=== PATIENT | female | born 1995 | race Caucasian/White ===

== ENCOUNTER 2016-09-02 22:31 | Emergency (ER) | payer MEDICAID ==
[2016-09-02 22:36] VITALS: TEMP 98.2
[2016-09-02] MEDS ORDERED: ONDANSETRON 4 MG/2 ML VIAL IVP STA (22:41)
[2016-09-02] MEDS ORDERED: DICYCLOMINE 10 MG/ML 2 ML AMP IM STA (22:41)
[2016-09-02] MEDS ORDERED: SODIUM CHLORIDE 0.9% 1,000 ML IV STA (22:41)
--- NOTE | 2016-09-02 22:46 | ED ---
Nausea/Vomiting/Diarrhea HPI - General Chief complaint: Nausea/Vomiting/Diarrhea Stated complaint: nausea Time Seen by Provider: 09/02/16 22:37 Source: patient, RN notes reviewed Mode of arrival: ambulatory Limitations: no limitations - History of Present Illness Initial comments: 20-year-old female presents to the emergency department with a chief complaint of nausea vomiting diarrhea. This started at 4:00 today. Patient states she threw up multiple times. Patient denies any fever chills. Patient states that she was concerned due to continued nausea vomiting diarrhea. patient denies any significant health history. Patient states she is feeling anxious about being in the hospital.Patient denies any recent fever, chills, shortness of breath, chest pain, back pain, abdominal pain, numbness or tingling, dysuria or hematuria, constipation, headaches or visual changes, or any other current symptoms. - Related Data Home Medications Medication Instructions Recorded Confirmed Escitalopram [Lexapro] 10 mg PO DAILY 09/02/16 09/02/16 Previous Rx's Medication Instructions Recorded Ondansetron Odt [Zofran ODT] 4 mg PO Q8HR PRN #20 tab 09/03/16 Allergies Allergy/AdvReac Type Severity Reaction Status Date / Time Penicillins Allergy Rash/Hives Verified 09/02/16 22:36 Review of Systems ROS Statement: Those systems with pertinent positive or pertinent negative responses have been documented in the HPI. ROS Other: All systems not noted in ROS Statement are negative. Past Medical History Past Medical History: No Reported History History of Any Multi-Drug Resistant Organisms: None Reported Past Surgical History: No Surgical Hx Reported Past Psychological History: Anxiety, Depression Smoking Status: Current every day smoker Past Alcohol Use History: Occasional Past Drug Use History: None Reported General Exam - General Exam Comments Initial Comments: General: The patient is awake and alert, in mild distress due to being anxious , and does not appear acutely ill. Eye: Pupils are equal, round and reactive to light, extra-ocular movements are intact; there is normal conjunctiva bilaterally. No signs of icterus. Ears, nose, mouth and throat: There are moist mucous membranes and no oral lesions. Neck: The neck is supple, there is no tenderness. Cardiovascular: There is a tachycardia with regular rhythm. No murmur, rub or gallop is appreciated. Respiratory: Lungs are clear to auscultation, respirations are non-labored, breath sounds are equal. No wheezes, stridor, rales, or rhonchi. Gastrointestinal: Soft, non-distended, non-tender abdomen without masses or organomegaly noted. There is no rebound or guarding present. No CVA tenderness. Bowel sounds are unremarkable. Back: There is no tenderness to palpation in the midline. There is no obvious deformity. No rashes noted. Musculoskeletal: Normal ROM, no tenderness, There is no pedal edema. There is no calf tenderness or swelling. Sensation intact. Pulses equal bilaterally 2+. Neurological: CN II-XII intact, There are no obvious motor or sensory deficits. Coordination appears grossly intact. Speech is normal. Skin: Skin is warm and dry and no rashes or lesions are noted. Psychiatric: Cooperative, appropriate mood & affect, normal judgment. Limitations: no limitations Course Vital Signs 09/02/16 22:33 Temperature 98.2 F Pulse Rate 122 H Respiratory 20 Rate Blood Pressure 114/73 O2 Sat by Pulse 97 Oximetry Medical Decision Making - Medical Decision Making 20-year-old female presents emergency Department chief complaint of nausea vomiting diarrhea. Patient's abdomen is soft and nontender at this time. At this time patient's laboratory is reviewed. This is a mildly elevated white count which is thought to be reactive due to the increased nausea vomiting. The patient did have nausea vomiting diarrhea here Zofran did help we did give her another dose of Reglan. At this time we did give the patient prescription for Zofran for home. We discussed return parameters and follow-up. We discussed this time it does appear to be most likely due to a stomach virus however we discussed other etiologies what to look for. Patient's family stated they understood all questions have been answered. They will be discharged home. - Lab Data Result diagrams: 09/02/16 23:17 09/02/16 23:17 Lab Results 09/02/16 09/02/16 09/02/16 Range/Units 23:17 23: 23:30 WBC 15.7 H (4.0-11.0) k/uL RBC 5.25 (3.80-5.40) m/uL Hgb 15.1 (11.4-16.0) gm/dL Hct 45.5 (34.0-46.0) % MCV 86.7 (80.0-100.0) fL MCH 28.7 (25.0-35.0) pg MCHC 33.2 (31.0-37.0) g/dL RDW 12.8 (11.5-15.5) % Plt Count 213 (150-450) k/uL Neutrophils % 89 % Lymphocytes % 4 % Monocytes % 3 % Eosinophils % 3 % Basophils % 1 % Neutrophils # 13.9 H (1.3-7.7) k/uL Lymphocytes # 0.6 L (1.0-4.8) k/uL Monocytes # 0.5 (0-1.0) k/uL Eosinophils # 0.5 (0-0.7) k/uL Basophils # 0.1 (0-0.2) k/uL Sodium 143 (137-145) mmol/L Potassium 4.1 (3.5-5.1) mmol/L Chloride 108 H (98-107) mmol/L Carbon Dioxide 20 L (22-30) mmol/L Anion Gap 15 mmol/L BUN 16 (7-17) mg/dL Creatinine 0.60 (0.52-1.04) mg/dL Est GFR (MDRD) Af Amer >60 (>60 ml/min/1.73 sqM) Est GFR (MDRD) Non-Af >60 (>60 ml/min/1.73 sqM) Glucose 127 H (74-99) mg/dL Calcium 9.8 (8.4-10.2) mg/dL Total Bilirubin 0.4 (0.2-1.3) mg/dL AST 25 (14-36) U/L ALT 38 (9-52) U/L Alkaline Phosphatase 81 (38-126) U/L Total Protein 8.0 (6.3-8.2) g/dL Albumin 4.9 (3.5-5.0) g/dL Urine Color Urine Appearance (Clear) Urine pH (5.0-8.0) Ur Specific [place] (1.001-1.035) Urine Protein (Negative) Urine Glucose (UA) (Negative) Urine Blood (Negative) Urine Nitrate (Negative) Urine Bilirubin (Negative) Urine Urobilinogen (<2.0) mg/dL Ur Leukocyte Esterase (Negative) Urine RBC (0-5) /hpf Urine WBC (0-5) /hpf Ur Squamous Epith Cells (0-4) /hpf Urine Bacteria (None) /hpf Urine Mucus (None) /hpf Urine HCG, Qual Not Detected (Not Detectd) 09/03/16 Range/Units 00:47 WBC (4.0-11.0) k/uL RBC (3.80-5.40) m/uL Hgb (11.4-16.0) gm/dL Hct (34.0-46.0) % MCV (80.0-100.0) fL MCH (25.0-35.0) pg MCHC (31.0-37.0) g/dL RDW (11.5-15.5) % Plt Count (150-450) k/uL Neutrophils % % Lymphocytes % % Monocytes % % Eosinophils % % Basophils % % Neutrophils # (1.3-7.7) k/uL Lymphocytes # (1.0-4.8) k/uL Monocytes # (0-1.0) k/uL Eosinophils # (0-0.7) k/uL Basophils # (0-0.2) k/uL Sodium (137-145) mmol/L Potassium (3.5-5.1) mmol/L Chloride (98-107) mmol/L Carbon Dioxide (22-30) mmol/L Anion Gap mmol/L BUN (7-17) mg/dL Creatinine (0.52-1.04) mg/dL Est GFR (MDRD) Af Amer (>60 ml/min/1.73 sqM) Est GFR (MDRD) Non-Af (>60 ml/min/1.73 sqM) Glucose (74-99) mg/dL Calcium (8.4-10.2) mg/dL Total Bilirubin (0.2-1.3) mg/dL AST (14-36) U/L ALT (9-52) U/L Alkaline Phosphatase (38-126) U/L Total Protein (6.3-8.2) g/dL Albumin (3.5-5.0) g/dL Urine Color Yellow Urine Appearance Cloudy H (Clear) Urine pH 5.5 (5.0-8.0) Ur Specific [place] 1.020 (1.001-1.035) Urine Protein Trace H (Negative) Urine Glucose (UA) Negative (Negative) Urine Blood Negative (Negative) Urine Nitrate Negative (Negative) Urine Bilirubin Negative (Negative) Urine Urobilinogen <2.0 (<2.0) mg/dL Ur Leukocyte Esterase Negative (Negative) Urine RBC <1 (0-5) /hpf Urine WBC 1 (0-5) /hpf Ur Squamous Epith Cells 14 H (0-4) /hpf Urine Bacteria Rare H (None) /hpf Urine Mucus Rare H (None) /hpf Urine HCG, Qual (Not Detectd) Disposition Clinical Impression: Nausea & vomiting, Diarrhea Disposition: HOME SELF-CARE Condition: Stable Instructions: Acute Nausea and Vomiting (ED) Additional Instructions: Please use medication as discussed. Please follow up with family doctor if symptoms have not improved over the next two days. Please return to the emergency room if your symptoms increase or worsen or for any other concerns. Prescriptions: Ondansetron Odt [Zofran ODT] 4 mg PO Q8HR PRN #20 tab PRN Reason: Nausea Referrals: Jennifer Boggs III, MD [Primary Care Provider] - 1-2 days Time of Disposition: 01:12
[2016-09-02 23:31] LABS: Basophils # (A) 0.1 k/uL (0-0.2); Basophils % (A) 1 %; CHCM 34.8; Eosinophils # (A) 0.5 k/uL (0-0.7); Eosinophils % (A) 3 %; HCT 45.5 % (34.0-46.0); HDW 2.57; HGB 15.1 gm/dL (11.4-16.0); Luc # (Auto) 0.06; Luc % (Auto) 0; Lymphocytes # (A) 0.6 k/uL (1.0-4.8); Lymphocytes % (A) 4 %; MCH 28.7 pg (25.0-35.0); MCHC 33.2 g/dL (31.0-37.0); MCV 86.7 fL (80.0-100.0); Mean Platelet Volume 7.9; Monocytes # (A) 0.5 k/uL (0-1.0); Monocytes % (A) 3 %; Neutrophils # (A) 13.9 k/uL (1.3-7.7); Neutrophils % (A) 89 %; RBC 5.25 m/uL (3.80-5.40); RDW 12.8 % (11.5-15.5); WBC 15.7 k/uL (4.0-11.0); WBC (Perox) 16.37
[2016-09-02 23:40] LABS: ALT 38 U/L (9-52); AST 25 U/L (14-36); Alkaline Phosphatase 81 U/L (38-126); Anion Gap 15 mmol/L; Blood Urea Nitrogen 16 mg/dL (7-17); Calcium 9.8 mg/dL (8.4-10.2); Carbon Dioxide 20 mmol/L (22-30); Chloride 108 mmol/L (98-107); Glucose 127 mg/dL (74-99); Non-African American GFR(MDRD) >60 (>60 ml/min/1.73 sqM); Potassium 4.1 mmol/L (3.5-5.1); Sodium 143 mmol/L (137-145); Total Bilirubin 0.4 mg/dL (0.2-1.3)
--- NOTE | 2016-09-03 00:47 | XR ---
EXAMINATION TYPE: XR abdomen 2V DATE OF EXAM: 09/03/2016 12:22 AM COMPARISON: NONE HISTORY: Abdominal pain TECHNIQUE: 3 views FINDINGS: Bowel gas pattern is normal. There is no sign of intestinal obstruction or pneumoperitoneum . Fecal pattern is normal. There is no sign of a mass. Lung bases are clear. There are no pathologic calcifications over the kidneys. Bony structures appear intact. IMPRESSION: Nonacute abdomen.
[2016-09-03] MEDS ORDERED: METOCLOPRAMIDE 5 MG/ML 2 ML VIAL IVP STA (01:03)
[2016-09-03] MEDS ORDERED: ONDANSETRON 4 MG ODT STARTER PACK 2 TAB BTL PO STA (01:04)
[2016-09-03 01:11] LABS: Appearance,Urine Cloudy (Clear); Bacteria,Urine Rare /hpf; Bilirubin,Urine Negative (Negative); Glucose,Urine (UA) Negative (Negative); Ketones,Urine 2+ (Negative); Leukocyte Esterase,Urine Negative (Negative); Mucus,Urine Rare /hpf; Nitrite,Urine Negative (Negative); PH, Urine 5.5 (5.0-8.0); Particle Count 6148; Protein,Urine Trace (Negative); RBC,Urine <1 /hpf (0-5); Squamous Epithelial Cell,Urine 14 /hpf (0-4); UA Billing (MACRO vs. MICRO) MICRO; Urobilinogen,Urine <2.0 mg/dL (<2.0); WBC,Urine 1 /hpf (0-5)
[2016-09-03 01:21] VITALS: BP 119/76; PULSE 96; RESP 16
== END 2016-09-03 01:21 | disposition home or self-care (01) ==
LOC: EC 22:31
DX: R19.7 Diarrhea, unspecified (principal); R11.2 Nausea with vomiting, unspecified; F17.200 Nicotine dependence, unspecified, uncomplicated; F41.9 Anxiety disorder, unspecified; F32.9 Major depressive disorder, single episode, unspecified; Z88.0 Allergy status to penicillin; Z79.899 Other long term (current) drug therapy
CPT/HCPCS: 99284; 96374; 96375; 96372; 96361; 36415; 80053; 85025; 81001; 81025; 74020; J0500; J2765; J2405; S0119

== ENCOUNTER 2020-05-16 17:22 | Emergency (ER) | payer SELFPAY ==
[2020-05-16 17:27] VITALS: BP 105/67; PULSE 85; RESP 16; TEMP 98.8
--- NOTE | 2020-05-16 17:29 | ED ---
Female Urogenital HPI - General Chief complaint: Abdominal Pain Stated complaint: poss bladder infection Time Seen by Provider: 05/16/20 17:28 Source: patient, RN notes reviewed, old records reviewed Mode of arrival: ambulatory Limitations: no limitations - History of Present Illness Initial comments: Is a 24-year-old female DF for evaluation of dysuria. History of UTI feels a prior UTI. No travel history or sick contacts no fevers. No abdominal pain. Denies chance of or STD MD Complaint: dysuria -: days(s) Location: suprapubic Radiation: non-radiating Severity: mild Severity scale (1-10): 3 Quality: burning Consistency: constant Improves with: none Worsens with: urination Last Menstrual Period: 04/29/20 Patient : No Associated Symptoms: denies other symptoms - Related Data Home Medications Medication Instructions Recorded Confirmed Escitalopram [Lexapro] 10 mg PO DAILY 09/02/16 09/02/16 Previous Rx's Medication Instructions Recorded Ondansetron Odt [Zofran ODT] 4 mg PO Q8HR PRN #20 tab 09/03/16 Nitrofurantoin Monohyd/M-Cryst 100 mg PO Q12HR #14 cap 05/16/20 [Macrobid] Allergies Allergy/AdvReac Type Severity Reaction Status Date / Time Penicillins Allergy Rash/Hives Verified 05/16/20 17:25 Review of Systems ROS Statement: Those systems with pertinent positive or pertinent negative responses have been documented in the HPI. ROS Other: All systems not noted in ROS Statement are negative. Past Medical History Past Medical History: No Reported History Additional Past Medical History / Comment(s): anemia, History of Any Multi-Drug Resistant Organisms: None Reported Past Surgical History: Ear Surgery Past Psychological History: Anxiety, Depression Smoking Status: Current every day smoker Past Alcohol Use History: Occasional Past Drug Use History: Marijuana General Exam Limitations: no limitations General appearance: alert, in no apparent distress Head exam: Present: atraumatic, normocephalic, normal inspection Eye exam: Present: normal appearance, PERRL, EOMI. Absent: scleral icterus, conjunctival injection, periorbital swelling ENT exam: Present: normal exam, mucous membranes moist Neck exam: Present: normal inspection. Absent: tenderness, meningismus, lymphadenopathy Respiratory exam: Present: normal lung sounds bilaterally. Absent: respiratory distress, wheezes, rales, rhonchi, stridor Cardiovascular Exam: Present: regular rate, normal rhythm, normal heart sounds. Absent: systolic murmur, diastolic murmur, rubs, gallop, clicks GI/Abdominal exam: Present: soft, normal bowel sounds. Absent: distended, tenderness, guarding, rebound, rigid Extremities exam: Present: normal inspection, full ROM, normal capillary refill. Absent: tenderness, pedal edema, joint swelling, calf tenderness Back exam: Present: normal inspection Neurological exam: Present: alert, oriented X3, CN II-XII intact Psychiatric exam: Present: normal affect, normal mood Skin exam: Present: warm, dry, intact, normal color. Absent: rash Course Vital Signs 05/16/20 17:23 Temperature 98.8 F Pulse Rate 85 Respiratory 16 Rate Blood Pressure 105/67 O2 Sat by Pulse 97 Oximetry - Reevaluation(s) Reevaluation #1: 05/16/20 17:30 medical record is reviewed Reevaluation #2: 05/16/20 18:44 Spoke with patient regarding findings questions answered pat Medical Decision Making - Medical Decision Making 24 female DF for evaluation patient is UTI, patient replacement antibiotics and discharged home urine is cultured - Lab Data Lab Results 05/16/20 05/16/20 Range/Units 17:50 17:50 Urine Color Yellow Urine Appearance Turbid H (Clear) Urine pH 6.5 (5.0-8.0) Ur Specific [place] 1.020 (1.001-1.035) Urine Protein 2+ H (Negative) Urine Glucose (UA) Negative (Negative) Urine Ketones Negative (Negative) Urine Blood Large H (Negative) Urine Nitrite Negative (Negative) Urine Bilirubin Negative (Negative) Urine Urobilinogen <2.0 (<2.0) mg/dL Ur Leukocyte Esterase Large H (Negative) Urine RBC >182 H (0-5) /hpf Urine WBC >182 H (0-5) /hpf Urine WBC Clumps Many H (None) /hpf Ur Squamous Epith Cells 5 H (0-4) /hpf Urine Mucus Few H (None) /hpf Urine HCG, Qual Not Detected (Not Detectd) Disposition Clinical Impression: UTI (urinary tract infection) Disposition: HOME SELF-CARE Condition: Good Instructions (If sedation given, give patient instructions): Urinary Tract Infection in Women (ED) Prescriptions: Nitrofurantoin Monohyd/M-Cryst [Macrobid] 100 mg PO Q12HR #14 cap Is patient prescribed a controlled substance at d/c from ED?: No Referrals: Danielle Marinelli MD [Primary Care Provider] - 1-2 days
[2020-05-16 18:33] LABS: Appearance,Urine Turbid (Clear); Bilirubin,Urine Negative (Negative); Blood,Urine Large (Negative); Color,Urine Yellow; Glucose,Urine (UA) Negative (Negative); Ketones,Urine Negative (Negative); Leukocyte Esterase,Urine Large (Negative); Mucus,Urine Few /hpf; Nitrite,Urine Negative (Negative); PH, Urine 6.5 (5.0-8.0); Protein,Urine 2+ (Negative); RBC,Urine >182 /hpf (0-5); Squamous Epithelial Cell,Urine 5 /hpf (0-4); Urobilinogen,Urine <2.0 mg/dL (<2.0); WBC,Urine >182 /hpf (0-5)
[2020-05-16] MEDS ORDERED: NITROFURANTOIN MONOHYD/M-CRYST 100 MG CAP PO STA (18:42)
[2020-05-16] MEDS ORDERED: cefTRIAXone 250 MG VIAL IM STA (18:42)
[2020-05-17 15:19] LABS: C. trachomatis,PCR Negative (Neg,Equiv); Chlamydia trachomatis Source Urine; N. gonorrhoeae,PCR Negative (Neg,Equiv); Neisseria Source Urine
== END 2020-05-16 19:10 | disposition home or self-care (01) ==
LOC: EC 17:22
DX: N39.0 Urinary tract infection, site not specified (principal); F41.9 Anxiety disorder, unspecified; F32.9 Major depressive disorder, single episode, unspecified; F17.200 Nicotine dependence, unspecified, uncomplicated; Z79.899 Other long term (current) drug therapy; Z88.0 Allergy status to penicillin; Z87.440 Personal history of urinary (tract) infections
CPT/HCPCS: 81001; 81025; 87491; 87591; 87086; 99284; 96372; J0696

== ENCOUNTER 2020-05-19 15:36 | Emergency (ER) | payer OTHER ==
[2020-05-19 15:56] VITALS: BP 141/95; RESP 17; TEMP 98.6
[2020-05-19 16:39] LABS: Appearance,Urine Clear (Clear); Bilirubin,Urine Negative (Negative); Blood,Urine Negative (Negative); Color,Urine Dark Yellow; Glucose,Urine (UA) Negative (Negative); Ketones,Urine Negative (Negative); Leukocyte Esterase,Urine Negative (Negative); Nitrite,Urine Negative (Negative); PH, Urine 5.5 (5.0-8.0); Protein,Urine Negative (Negative); Specific Gravity,Urine 1.018 (1.001-1.035); Urobilinogen,Urine <2.0 mg/dL (<2.0)
--- NOTE | 2020-05-19 17:15 | ED ---
Female Urogenital HPI - General Chief complaint: Urogenital Stated complaint: abd pain. 05/16/20 revisit Time Seen by Provider: 05/19/20 16:15 Source: patient Mode of arrival: ambulatory Limitations: no limitations - History of Present Illness Initial comments: Patient is a 24-year-old male presenting to the emergency department with chief complaint of UTI. Patient states 4 days ago she developed urgency frequency dysuria which felt like her previous urinary tract infection. States she was in emergency department and was started on Bactrim. Patient was also tested for gonorrhea and chlamydia she was negative. Patient states the dysuria and the cloudy urine has improved although she continues to have frequency and urgency. Denies any nausea vomiting diarrhea. Denies any night sweats as fevers or chills. Patient denies vaginal discharge or foul smell. Last Menstrual Period: 04/29/20 - Related Data Home Medications Medication Instructions Recorded Confirmed Dextroamphetamine/Amphetamine 20 mg PO TID 05/19/20 05/19/20 [Adderall] Ibuprofen [Motrin Ib] 200 - 600 mg PO Q8H PRN 05/19/20 05/19/20 Omeprazole Magnesium [PriLOSEC OTC] 20 mg PO HS 05/19/20 05/19/20 buPROPion HCL [Wellbutrin SR] 300 mg PO DAILY 05/19/20 05/19/20 Previous Rx's Medication Instructions Recorded Nitrofurantoin Monohyd/M-Cryst 100 mg PO Q12HR #14 cap 05/16/20 [Macrobid] Cephalexin [Keflex] 500 mg PO Q6HR 5 Days #20 cap 05/19/20 Allergies Allergy/AdvReac Type Severity Reaction Status Date / Time Penicillins Allergy Rash/Hives Verified 05/19/20 17:10 Review of Systems ROS Statement: Those systems with pertinent positive or pertinent negative responses have been documented in the HPI. ROS Other: All systems not noted in ROS Statement are negative. Past Medical History Past Medical History: No Reported History Additional Past Medical History / Comment(s): anemia, History of Any Multi-Drug Resistant Organisms: None Reported Past Surgical History: Ear Surgery Past Psychological History: Anxiety, Depression Smoking Status: Current every day smoker Past Alcohol Use History: Occasional Past Drug Use History: Marijuana General Exam Limitations: no limitations General appearance: alert, in no apparent distress Head exam: Present: atraumatic, normocephalic, normal inspection Eye exam: Present: normal appearance, PERRL, EOMI Pupils: Present: normal accommodation ENT exam: Present: normal exam, normal oropharynx, mucous membranes moist Neck exam: Present: normal inspection, full ROM. Absent: tenderness Respiratory exam: Present: normal lung sounds bilaterally. Absent: respiratory distress, wheezes, rales Cardiovascular Exam: Present: regular rate, normal rhythm, normal heart sounds GI/Abdominal exam: Present: soft. Absent: distended, tenderness, guarding, rebound Extremities exam: Present: normal inspection, full ROM, normal capillary refill. Absent: tenderness Back exam: Present: normal inspection, full ROM. Absent: tenderness, CVA tenderness (R), CVA tenderness (L) Neurological exam: Present: alert, oriented X3 Psychiatric exam: Present: normal affect, normal mood Skin exam: Present: warm, dry, intact, normal color Course Vital Signs 05/19/20 05/19/20 15:54 17:16 Temperature 98.6 F Pulse Rate 119 H 100 Respiratory 17 Rate Blood Pressure 141/95 O2 Sat by Pulse 100 Oximetry - Reevaluation(s) Reevaluation #1: 05/19/20 19:01 medical records reviewed Medical Decision Making - Medical Decision Making Patient is a 24-year-old female presenting to the emergency department with chief complaint of UTI. On physical examination, patient does not have any abdominal pain nor CVA tenderness. She does complain of frequency and urgency but no dysuria. UA is unremarkable. Urine culture pending. Most recent urine culture obtained reveals suspect a staph aureus infection. Patient was advised to stop the Bactrim and she will be started on Keflex instead. Strict return parameters were thoroughly discussed the patient is understanding and agreeable. Case discussed with physician. - Lab Data Lab Results 05/19/20 Range/Units 16:20 Urine Color Dark Yellow Urine Appearance Clear (Clear) Urine pH 5.5 (5.0-8.0) Ur Specific [place] 1.018 (1.001-1.035) Urine Protein Negative (Negative) Urine Glucose (UA) Negative (Negative) Urine Ketones Negative (Negative) Urine Blood Negative (Negative) Urine Nitrite Negative (Negative) Urine Bilirubin Negative (Negative) Urine Urobilinogen <2.0 (<2.0) mg/dL Ur Leukocyte Esterase Negative (Negative) Disposition Clinical Impression: Urinary tract infection symptoms Disposition: HOME SELF-CARE Condition: Stable Instructions (If sedation given, give patient instructions): Urinary Tract Infection in Women (ED) Additional Instructions: Take prescribed medication as directed. Stop taking the Bactrim. Return to emergency department if symptoms worsen. Prescriptions: Cephalexin [Keflex] 500 mg PO Q6HR 5 Days #20 cap Is patient prescribed a controlled substance at d/c from ED?: No Referrals: Danielle Marinelli MD [Primary Care Provider] - 1-2 days Time of Disposition: 17:15
[2020-05-19 17:17] VITALS: PULSE 100
== END 2020-05-19 17:16 | disposition home or self-care (01) ==
LOC: EC 15:36
DX: R39.9 Unspecified symptoms and signs involving the genitourinary system (principal); R35.0 Frequency of micturition; R39.15 Urgency of urination; F41.9 Anxiety disorder, unspecified; F32.9 Major depressive disorder, single episode, unspecified; F17.200 Nicotine dependence, unspecified, uncomplicated; Z79.899 Other long term (current) drug therapy; Z88.0 Allergy status to penicillin
CPT/HCPCS: 81003; 87086; 99283

== ENCOUNTER 2021-09-22 10:18 | Day surgery (SDC) | payer MEDICAID, OTHER ==
[~2021-09-22 10:18] MED LIST: LACTATED RINGERS 1,000 ML IV SCH; LIDOCAINE 1% (10MG/ML) FOR IV START INTRADERMA PRN
[2021-09-22 10:49] VITALS: TEMP 97.4
--- NOTE | 2021-09-22 11:31 | P.GSHP ---
History of Present Illness H&P Date: 09/22/21 Chief Complaint: GERD This a 25-year-old female who presents today for EGD. She's had issues with GERD. Past Medical History Past Medical History: No Reported History Additional Past Medical History / Comment(s): anemia, History of Any Multi-Drug Resistant Organisms: None Reported Past Surgical History: Ear Surgery Past Psychological History: Anxiety, Depression Smoking Status: Current every day smoker Past Alcohol Use History: Occasional Past Drug Use History: Marijuana Medications and Allergies Home Medications Medication Instructions Recorded Confirmed Type Dextroamphetamine/Amphetamine 10 mg PO TID 05/19/20 09/22/21 History [Adderall] Ibuprofen [Motrin Ib] 200 - 600 mg PO Q8H PRN 05/19/20 09/22/21 History Omeprazole Magnesium [PriLOSEC OTC] 20 mg PO HS 05/19/20 09/22/21 History buPROPion HCL [Wellbutrin SR] 300 mg PO DAILY 05/19/20 09/22/21 History Allergies Allergy/AdvReac Type Severity Reaction Status Date / Time Penicillins Allergy Rash/Hives Verified 09/22/21 10:44 Surgical - Exam Vital Signs Temp Pulse Resp BP Pulse Ox 97.4 F L 90 16 112/58 100 09/22/21 10:47 09/22/21 10:47 09/22/21 10:47 09/22/21 10:47 09/22/21 10:47 - General well developed, well nourished, no distress - Eyes PERRL - ENT normal pinna - Neck no masses - Respiratory normal expansion - Cardiovascular Rhythm: regular - Abdomen Abdomen: soft, non tender Assessment and Plan Assessment: GERD. We'll perform EGD.
[2021-09-22] MEDS ORDERED: PROPOFOL 10 MG/ML 20 ML VIAL IV ONE (11:33)
[2021-09-22] MEDS ORDERED: LIDOCAINE 1% INJ 10MG/ML (20 ML MDV) ONE (11:33)
--- NOTE | 2021-09-22 11:43 | P.OP ---
Date of Procedure: 09/22/21 Preoperative Diagnosis: GERD Postoperative Diagnosis: Hiatal hernia Esophagitis Procedure(s) Performed: EGD Anesthesia: MAC Surgeon: Joseph Kaur Pathology: other (Esophagus) Condition: stable Disposition: PACU Description of Procedure: Patient's placed on the endoscopy table in the lateral position. She received IV sedation. The gastro-placed oropharynx passed in the esophagus into the stomach. Scope was then placed through the pylorus. The first and second portion of the duodenum appeared normal. The scope was then brought back the antrum this appeared minimally inflamed. The scope was then retroflexed and the remainder of the stomach appeared normal. Patient had a moderate size sliding hiatal hernia. The GE junction was at 40 cm. The distal esophagus appeared inflamed. Biopsies performed. The proximal esophagus appeared normal. Withdrawn for patient.
[2021-09-22 11:56] VITALS: BP 99/62
[2021-09-22 12:17] VITALS: PULSE 77; RESP 18
== END 2021-09-22 12:23 | disposition home or self-care (01) ==
LOC: ORWHC2ENDO 10:18
PROVIDERS: ATTEND Surgery
DX: K21.00 Gastro-esophageal reflux disease with esophagitis, without bleeding (principal); K44.9 Diaphragmatic hernia without obstruction or gangrene; F41.9 Anxiety disorder, unspecified; F32.A Depression, unspecified; F17.290 Nicotine dependence, other tobacco product, uncomplicated; F98.8 Other specified behavioral and emotional disorders with onset usually occurring in childhood and adolescence; R26.2 Difficulty in walking, not elsewhere classified; Z79.899 Other long term (current) drug therapy; Z88.0 Allergy status to penicillin
CPT/HCPCS: 81025; 88305; 43239; J2001; J2704

== ENCOUNTER 2024-02-02 17:31 | Emergency (ER) | payer MEDICAID, OTHER ==
[2024-02-02 17:43] VITALS: TEMP 98.9
--- NOTE | 2024-02-02 18:10 | ED ---
Female Urogenital HPI - General Chief complaint: Urogenital Stated complaint: poss UTI Time Seen by Provider: 02/02/24 17:49 Source: patient, RN notes reviewed Mode of arrival: ambulatory Limitations: no limitations - History of Present Illness Initial comments: This is a 28-year-old female presents the emergency department chief complaint of dysuria, increase in frequency and urgency over the past 5 days. Patient states that she has had roughly 3 urinary tract infections this year and has been treated with antibiotics. Patient states that she normally goes to [facility] [place] [facility] where she is tested and treated with antibiotics. She denies fevers, chills, body aches, nausea, vomiting. Her last dose of antibiotics was in December where she was prescribed Macrobid. Patient denies history of kidney stones. - Related Data Home Medications Medication Instructions Recorded Confirmed Dextroamphetamine/Amphetamine 10 mg PO TID 05/19/20 09/22/21 [Adderall] Ibuprofen [Motrin Ib] 200 - 600 mg PO Q8H PRN 05/19/20 09/22/21 Omeprazole Magnesium [PriLOSEC OTC] 20 mg PO HS 05/19/20 09/22/21 buPROPion HCL [Wellbutrin SR] 300 mg PO DAILY 05/19/20 09/22/21 Allergies Allergy/AdvReac Type Severity Reaction Status Date / Time Penicillins Allergy Rash/Hives Verified 09/22/21 10:44 Review of Systems ROS Statement: Those systems with pertinent positive or pertinent negative responses have been documented in the HPI. ROS Other: All systems not noted in ROS Statement are negative. Past Medical History Past Medical History: No Reported History Additional Past Medical History / Comment(s): anemia, UTI History of Any Multi-Drug Resistant Organisms: None Reported Past Surgical History: Ear Surgery Past Psychological History: Anxiety, Depression Smoking Status: Current every day smoker Past Alcohol Use History: Occasional Past Drug Use History: Marijuana General Exam Limitations: no limitations General appearance: alert, in no apparent distress Head exam: Present: atraumatic, normocephalic, normal inspection Eye exam: Present: normal appearance, PERRL, EOMI. Absent: scleral icterus, conjunctival injection, periorbital swelling ENT exam: Present: normal exam, mucous membranes moist Neck exam: Present: normal inspection. Absent: tenderness, meningismus, lymphadenopathy Respiratory exam: Present: normal lung sounds bilaterally. Absent: respiratory distress, wheezes, rales, rhonchi, stridor Cardiovascular Exam: Present: regular rate, normal rhythm, normal heart sounds. Absent: systolic murmur, diastolic murmur, rubs, gallop, clicks GI/Abdominal exam: Present: soft, tenderness (suprapubic). Absent: guarding, rebound, rigid, normal bowel sounds Extremities exam: Present: normal inspection, full ROM, normal capillary refill. Absent: tenderness, pedal edema, joint swelling, calf tenderness Back exam: Present: normal inspection Neurological exam: Present: alert, oriented X3, CN II-XII intact Course Vital Signs 02/02/24 17:40 Temperature 98.9 F Pulse Rate 103 H Respiratory 20 Rate Blood Pressure 129/77 O2 Sat by Pulse 100 Oximetry Medical Decision Making - Medical Decision Making Was pt. sent in by a medical professional or institution (, PA, RN TRANSITIONAL, urgent care, hospital, or fci...) When possible be specific @ -No Did you speak to anyone other than the patient for history (EMS, parent, family, police, friend...)? What history was obtained from this source @ -No Did you review nursing and triage notes (agree or disagree)? Why? @ -I reviewed and agree with nursing and triage notes Were old charts reviewed (outside hosp., previous admission, EMS record, old EKG, old radiological studies, urgent care reports/EKG's, fci records)? Report findings @ -No old charts were reviewed Differential Diagnosis (chest pain, altered mental status, abdominal pain women, abdominal pain men, vaginal bleeding, weakness, fever, dyspnea, syncope, headache, dizziness, GI bleed, back pain, seizure, CVA, palpatations, mental health, musculoskeletal)? @ -Differential Abdominal Pain Women: Appendicitis, Cholecystitis, diverticulosis, ischemic bowel, pancreatitis, hepatitis, UTI, gastroenteritis, AAA, incarcerated hernia, bowel obstruction, constipation, inflammatory bowel, hepatitis, peptic ulcer disease, splenic infarction, perforated viscus, vulvitis, ovarian torsion, PID, kidney stone, placenta abruption, this is not meant to be an all-inclusive list EKG interpreted by me (3pts min.). @ -None X-rays interpreted by me (1pt min.). @ -None done CT interpreted by me (1pt min.). @ -None done U/S interpreted by me (1pt. min.). @ -None done What testing was considered but not performed or refused? (CT, X-rays, U/S, labs)? Why? @ -None What meds were considered but not given or refused? Why? @ -None Did you discuss the management of the patient with other professionals (professionals i.e. Dr., PA, RN TRANSITIONAL, lab, RT, psych nurse, social media designer, data network architect, teacher, business services officer, window caser)? Give summary @ -No Was smoking cessation discussed for >3mins.? @ -No Was critical care preformed (if so, how long)? @ -No Were there social determinants of health that impacted care today? How? (Homelessness, low income, unemployed, alcoholism, drug addiction, transportation, low edu. Level, literacy, decrease access to med. care, long term, rehab)? @ -No Was there de-escalation of care discussed even if they declined (Discuss DNR or withdrawal of care, Hospice)? DNR status @ -No What co-morbidities impacted this encounter? (DM, HTN, Smoking, COPD, CAD, Cancer, CVA, ARF, Chemo, Hep., AIDS, mental health diagnosis, sleep apnea, morbid obesity)? @ -None Was patient admitted / discharged? Hospital course, mention meds given and route, prescriptions, significant lab abnormalities, going to OR and other pertinent info. @ -Discharged. 28-year-old female dysuria, increase in frequency and urgency. examination of the patient's abdomen is soft with mild tenderness suprapubically. There is no flank pain or CVA tenderness. Patient will be evaluated via urinalysis. Urinalysis concerning for signs of infection including white blood cells and white blood cell counts. She will be treated with an IM dose of Rocephin and discharged with oral ceftriaxone. Urine will be sent for culture. All questions answered at bedside and strict return parameters discussed with the patient she is verbalized understanding. case discussed with Dr. white. Undiagnosed new problem with uncertain prognosis? @ -No Drug Therapy requiring intensive monitoring for toxicity (Heparin, Nitro, Insulin, Cardizem)? @ -No Were any procedures done? @ -No Diagnosis/symptom? @ -Urinary tract infection Acute, or Chronic, or Acute on Chronic? @ -Acute Uncomplicated (without systemic symptoms) or Complicated (systemic symptoms)? @ -Uncomplicated Side effects of treatment? @ -No Exacerbation, Progression, or Severe Exacerbation? @ -No Poses a threat to life or bodily function? How? (Chest pain, USA, OR, pneumonia, PE, COPD, DKA, ARF, appy, cholecystitis, CVA, Diverticulitis, Homicidal, Suicidal, threat to staff... and all critical care pts) @ -No - Lab Data Lab Results 02/02/24 Range/Units 17:50 Urine Color Colorless Urine Appearance Cloudy H (Clear) Urine pH 6.0 (5.0-8.0) Ur Specific [place] 1.012 (1.001-1.035) Urine Protein Trace H (Negative) Urine Glucose (UA) Negative (Negative) Urine Ketones Negative (Negative) Urine Blood Moderate H (Negative) Urine Nitrite Negative (Negative) Urine Bilirubin Negative (Negative) Urine Urobilinogen <2.0 (<2.0) mg/dL Ur Leukocyte Esterase Large H (Negative) Urine RBC 15 H (0-5) /hpf Urine WBC >182 H (0-5) /hpf Urine WBC Clumps Many H (None) /hpf Ur Squamous Epith Cells 4 (0-4) /hpf Urine Mucus Rare H (None) /hpf Disposition Clinical Impression: UTI (urinary tract infection) Disposition: HOME SELF-CARE Condition: Good Instructions (If sedation given, give patient instructions): Urinary Tract Infection in Women (ED) Additional Instructions: Return to the emergency department if symptoms worsen or not improve. Complete full course of antibiotics as prescribed. Is patient prescribed a controlled substance at d/c from ED?: No Referrals: Dylan Melendez MD [Primary Care Provider] - 1-2 days Time of Disposition: 18:22
[2024-02-02 18:17] LABS: Appearance,Urine Cloudy (Clear); Bilirubin,Urine Negative (Negative); Blood,Urine Moderate (Negative); Color,Urine Colorless; Glucose,Urine (UA) Negative (Negative); Ketones,Urine Negative (Negative); Leukocyte Esterase,Urine Large (Negative); Mucus,Urine Rare /hpf; Nitrite,Urine Negative (Negative); Protein,Urine Trace (Negative); RBC,Urine 15 /hpf (0-5); Specific Gravity,Urine 1.012 (1.001-1.035); Squamous Epithelial Cell,Urine 4 /hpf (0-4); Urobilinogen,Urine <2.0 mg/dL (<2.0); WBC,Urine >182 /hpf (0-5)
[2024-02-02] MEDS: cefTRIAXone 1,000 MG VIAL (IM USE) IM STA (19:01)
[2024-02-02 19:07] VITALS: BP 111/71; PULSE 97; RESP 18
== END 2024-02-02 19:07 | disposition home or self-care (01) ==
LOC: EC 17:31
DX: N39.0 Urinary tract infection, site not specified (principal); F17.200 Nicotine dependence, unspecified, uncomplicated; Z88.0 Allergy status to penicillin
CPT/HCPCS: 81001; 87086; 99283; 96372; J0696

== ENCOUNTER 2024-10-05 01:32 | Inpatient (IN) | payer OTHER ==
[2024-10-05] MEDS ORDERED: CARBOPROST TROMETHAMINE 250 MCG/ML 1 ML AMP IM PRN (01:59)
[2024-10-05] MEDS ORDERED: TERBUTALINE 1 MG/ML VIAL SQ PRN (01:59)
[2024-10-05] MEDS ORDERED: miSOPROStoL 200 MCG TAB PO PRN (01:59)
[2024-10-05] MEDS ORDERED: LIDOCAINE 0.5% (PF) 5 MG/ML (50 ML SDV) SQ PRN (01:59)
[2024-10-05] MEDS ORDERED: OXYTOCIN 10 UNIT/ML 1 ML VIAL IM PRN (01:59)
[2024-10-05] MEDS ORDERED: miSOPROStoL 200 MCG TAB RECTAL PRN (01:59)
[2024-10-05] MEDS ORDERED: METHYLERGONOVINE 0.2 MG/ML 1 ML AMP IM PRN (01:59)
[2024-10-05] MEDS ORDERED: TRANEXAMIC 1,000 MG/100ML-NACL 1,000 MG in EMPTY BAG 1 BAG IV PRN (01:59)
[2024-10-05] MEDS: LACTATED RINGERS 1,000 ML IV SCH (02:24)
[2024-10-05 02:44] LABS: Anisocytosis Moderate; Basophils % (A) 0 %; Eosinophils # (A) 0.1 k/uL (0-0.7); Eosinophils % (A) 1 %; HCT 34.1 % (34.0-46.0); HGB 10.6 gm/dL (11.4-16.0); Hypochromasia Moderate; Lymphocytes # (A) 1.7 k/uL (1.0-4.8); Lymphocytes % (A) 12 %; MCH 25.5 pg (25.0-35.0); MCHC 31.2 g/dL (31.0-37.0); MCV 81.6 fL (80.0-100.0); Mean Platelet Volume 8.9; Microcytosis Slight; Monocytes # (A) 0.7 k/uL (0-1.0); Monocytes % (A) 5 %; Neutrophils # (A) 11.5 k/uL (1.3-7.7); Neutrophils % (A) 81 %; Platelet Count 206 k/uL (150-450); RBC 4.18 m/uL (3.80-5.40); RDW 20.4 % (11.5-15.5); WBC 14.2 k/uL (3.8-10.6)
[2024-10-05 04:57] LABS: Amphetamine Screen,Urine Not Detected (NotDetected); Barbiturate Screen,Urine Not Detected (NotDetected); Benzodiazepines Screen,Urine Not Detected (NotDetected); Cocaine Screen,Urine Not Detected (NotDetected); Methadone Screen, Urine Not Detected (NotDetected); Opiate Screen,Urine Not Detected (NotDetected); Oxycodone Screen, Urine Not Detected (NotDetected); Phencyclidine Screen,Urine Not Detected (NotDetected); Tricyclic Antidepressant,Urine Not Detected (NotDetected); Urn Cannabinoid Scrn Not Detected (NotDetected)
[2024-10-05] MEDS: BUTORPHANOL 1 MG/ML 1 ML VIAL IV PRN (06:58)
--- NOTE | 2024-10-05 08:17 | P.HPOB ---
History of Present Illness H&P Date: 10/05/24 Chief Complaint: 40 and 1 sevenths weeks, spontaneous rupture of membranes, labor The patient is a 28-year-old 1 para 0 admitted at 40 and 1 sevenths weeks as established by last menstrual period and confirmed by second trimester ultrasound. She is admitted with documented spontaneous rupture of membranes for clear fluid and in early labor with all signs reassuring, category 1 heart rate tracing. Her has been uncomplicated and group B strep stat us is negative. Obstetrical history: 1 para 0 with current statistics listed in history of present illness. EDC of 10/04/2024 was established by last menstrual period and confirmed by second trimester ultrasound. Laboratory workup demonstrates a blood type of A+ with a negative antibody screen. Rubella status is immune. The remainder of the laboratory workup is within normal l imits aside from being hepatitis B nonimmune. Early Glucola and second trimester Glucola were within normal limits. Group B strep status is negative. Gynecologic history: Unremarkable with no history of any infections to include STDs. Review of Systems Review of systems is confined to history of present illness. Past Medical History Past Medical History: No Reported History Additional Past Medical History / Comment(s): anemia, UTI History of Any Multi-Drug Resistant Organisms: None Reported Past Surgical History: Ear Surgery Past Anesthesia/Blood Transfusion Reactions: No Reported Reaction Past Psychological History: Anxiety, Depression Smoking Status: Vaper Past Alcohol Use History: Occasional Past Drug Use History: Marijuana Medications and Allergies Home Medications Medication Instructions Recorded Confirmed Type Omeprazole Magnesium [PriLOSEC OTC] 20 mg PO HS 05/19/20 10/05/24 History Vit No.179/Iron/Folic 1 tab PO QID 10/05/24 10/05/24 History [ Tablet] Allergies Allergy/AdvReac Type Severity Reaction Status Date / Time Penicillins Allergy Rash/Hives Verified 10/05/24 01:36 Exam Vital Signs Temp Pulse Resp BP Pulse Ox 10/05/24 01:58 98.3 F 99 16 117/71 99 10/05/24 01:35 98.8 F 99 16 145/79 99 Intake and Output 10/04/24 10/05/24 10/05/24 22:59 06:59 14:59 Other: # Voids 1 Weight 77.111 kg In general, this is a well-developed, well-nourished white female in no acute distress. Her heart has a regular rhythm and rate without murmur. Her lungs are clear to auscultation bilateral in all [place]. Her abdomen is gravid, nondistended, has normal active bowel sounds, is soft, nontender, and without any palpable masses aside from the uterine fundus. Her extremities are without any cyanosis, clubbing or significant edema bilaterally. Most recent cervical examination demonstrates her cervix to be 5+ centimeters dilated, 50% effaced, with the vertex and presentation at -2 station. Spontaneous rupture of membranes has been confirmed. Results Result Diagrams: 10/05/24 02:20 Abnormal Lab Results - Last 24 Hours (Table) 10/05/24 Range/Units 02:20 WBC 14.2 H (3.8-10.6) k/uL Hgb 10.6 L (11.4-16.0) gm/dL RDW 20.4 H (11.5-15.5) % Neutrophils # 11.5 H (1.3-7.7) k/uL Assessment and Plan (1) Active labor at term Current Visit: Yes Status: Acute Code(s): GUI6243 - SNOMED Code(s): 24247215 Plan: Patient is admitted for active management of labor. She will have close maternal and surveillance and expectant management will be practiced. At this time, she is requesting nonintervention, but she is a good candidate for either IV or epidural analgesia should she so choose. Should she make no significant progress in the next hour or 2, Pitocin augmentation will be added.
[2024-10-05] MEDS: OXYTOCIN 30 UNITS/500 ML NS 30 UNIT in SALINE 1 500ML.BAG IV SCH (13:21)
[2024-10-05] MEDS ORDERED: fentaNYL (PF) 50 MCG/ML 5 ML AMP ONE (17:05)
[2024-10-05] MEDS ORDERED: SODIUM CHLORIDE 0.9% 250 ML BAG ONE (17:05)
[2024-10-05] MEDS ORDERED: ROPIVACAINE 5 MG/ML 30 ML VIAL ONE (17:05)
[2024-10-05] MEDS: CITRIC ACID-SODIUM CITRATE 15 ML CUP PO ONE (19:19)
[2024-10-05] MEDS ORDERED: MORPHINE SULFATE (PF) 0.3 MG/0.3 ML SYR ONE (19:31)
[2024-10-05] MEDS ORDERED: OXYTOCIN 10 UNIT/ML 1 ML VIAL ONE (19:31)
[2024-10-05] MEDS ORDERED: fentaNYL (PF) 50 MCG/ML 2 ML AMP ONE (19:31)
[2024-10-05] MEDS ORDERED: NALBUPHINE (ANES) 10 MG/ML - 1 ML AMP ONE (19:31)
[2024-10-05] MEDS ORDERED: diphenhydrAMINE 50 MG/ML 1 ML VIAL IVP PRN ×2 (20:28)
[2024-10-05] MEDS ORDERED: ZOLPIDEM 5 MG TAB PO PRN (20:28)
[2024-10-05] MEDS ORDERED: diphenhydrAMINE 25 MG CAP PO PRN (20:28)
[2024-10-05] MEDS ORDERED: ONDANSETRON 4 MG/2 ML VIAL IVP PRN (20:28)
[2024-10-05] MEDS ORDERED: NALOXONE 0.4 MG/ML 1 ML VIAL IV PRN (20:28)
[2024-10-05] MEDS ORDERED: METOCLOPRAMIDE 5 MG/ML 2 ML VIAL IVP PRN (20:28)
[2024-10-05] MEDS ORDERED: diphenhydrAMINE 50 MG CAP PO PRN (20:28)
[2024-10-05] MEDS ORDERED: SIMETHICONE 80 MG CHEWABLE PO PRN (20:28)
--- NOTE | 2024-10-05 20:28 | P.OP ---
Date of Procedure: 10/05/24 Preoperative Diagnosis: 1. Term IUP at 40 weeks and 2 days 2. Spontaneous rupture of membranes 3. Arrest of active phased of labor Postoperative Diagnosis: Same Procedure(s) Performed: Primary Lower Transverse Section Implants: None Anesthesia: epidural Surgeon: Anaid Martinez Label Sewer #1: Maynor Shelby Estimated Blood Loss (ml): 380 IV fluids (ml): 1,300 Urine output (ml): 100 (clear yellow) Pathology: none sent Condition: stable Disposition: floor Indications for Procedure: Ms. Medellin is a 28 year old at 40 weeks and 2 days who presented to labor and delivery with spontaneous rupture of membranes at 2330 on 10/04. Labor was augmented with oxytocin. She did progress to 8-9 centimeters at which time she had arrest of active phase of labor for over 4 hours despite adequate contractions. section was recommended for maternal and well- being. The risks, benefits, and alternatives to section were discussed with the patient including risk of bleeding, infection, damage to surrounding structures including bladder/bowels/ureters, and post-operative VTE. The patient understands these risks and desires to proceed with section. Operative Findings: Viable male infant in cephalic presentation. Clear amniotic fluid. Apgars 8/9, weight 8 pounds and 8 ounces (3860 grams). Normal uterus, bilateral fallopian tubes, and bilateral ovaries. Description of Procedure: The patient was taken back to the operating room where spinal anesthesia was found to be adequate. Two grams of Ancef were given for infection prophylaxis. She was prepared and draped in the dorsal supine position with a leftward tilt. A Pfannenstiel skin incision was made with the scalpel. The incision was carried down to the fascia with a bovie. The fascia was incised and extended laterally with Rdz scissors. The superior aspect of the fascia was grasped with the Boy clamps. The underlying rectus muscle was dissected off sharply with Rdz scissors. In a similar fashion, the inferior aspect of the fascia was elevated with Boy clamps and the rectus muscle and pyramidalis were dissected off. Ex cellent hemostasis was achieved with the bovie. The rectus muscle was in the midline down to the level of the pubic symphysis. Pre-peritoneal fatty tissue was bluntly dissected to expose the peritoneum. The peritoneum was found to be free of adherent bowel and entered sharply with Rdz scissors. The peritoneal incision was extended superiorly and inferiorly to the bladder reflection with good visualization of the bladder. The bladder blade was inserted and vesicouterine peritoneum was identified. Intraabdominal survey revealed scant, clear peritoneal fluid and the thinned-out lower uterine segment. The bladder blade was repositioned to keep the bladder out of the operative field. The lower uterine segment was incised with a scalpel. Clear fluid was noted. The uterine incision was extended bluntly with lateral and upward traction. The fetus was in cephalic presentation. The head was elevated out of the pelvis with special attention paid to avoid using the uterine incision as a fulcrum. Gentle fundal pressure was applied once the head was brought into the incision. The infant was delivered with no difficulty and was noted to be crying spontaneously. The mouth and nose were suctioned with a bulb. The cord was clamped and cut. The infant was handed off to the surtass analyst. IV oxytocin was initiated to facilitate uterine contractions. The placenta was delivered intact with manual massage of uterine fundus. The uterus was then exteriorized and the inside of the uterus was gently wiped with a lap sponge to assure complete removal of placental membranes. The uterine incision was closed with 0-Vicryl suture in a running locked fashion. A second imbricating layer was placed with 0-Vicryl. The ovaries and tubes were found to be normal. The uterus, tubes, and ovaries were then gently returned to the abdominal cavity. The abdomen was copiously suction irrigated. The uterine incision was reinspected and excellent hemostasis was noted. The fascial layer was closed with a 0-Vicryl suture. The subcutaneous tissue was reapproximated with 2-0 Plain Gut. The skin was closed with 4-0 Monocryl in a subcuticular fashion.The patient tolerated the procedure well. All the counts were correct times two. The patient was taken to the recovery room in a stable condition. A physician surgical services director was utilized for the entire procedure due to the need for tissue retraction, dissection of vital structures, prevention and management of blood loss, and reduction in overall operative and anesthesia time as is the standard of care.
[2024-10-05] MEDS: ACETAMINOPHEN TAB 500 MG TAB PO SCH (23:54)
[2024-10-06] MEDS ORDERED: KETOROLAC 15 MG/ML 1 ML VIAL IVP SCH
[2024-10-06] MEDS: KETOROLAC 15 MG/ML 1 ML VIAL IVP SCH ×2 (03:58→11:29)
[2024-10-06 06:38] LABS: Anisocytosis Moderate; Basophils % (A) 0 %; Eosinophils % (A) 0 %; HCT 31.4 % (34.0-46.0); HGB 9.5 gm/dL (11.4-16.0); Hypochromasia Moderate; Lymphocytes # (A) 1.2 k/uL (1.0-4.8); Lymphocytes % (A) 9 %; MCHC 30.2 g/dL (31.0-37.0); MCV 82.9 fL (80.0-100.0); Mean Platelet Volume 9.5; Microcytosis Slight; Monocytes # (A) 0.5 k/uL (0-1.0); Monocytes % (A) 4 %; Neutrophils # (A) 11.7 k/uL (1.3-7.7); Neutrophils % (A) 86 %; Platelet Count 180 k/uL (150-450); RBC 3.79 m/uL (3.80-5.40); WBC 13.5 k/uL (3.8-10.6)
[2024-10-06] MEDS: LACTATED RINGERS 1,000 ML IV SCH (06:54)
--- NOTE | 2024-10-06 10:33 | P.PNOBGPC ---
Subjective - Subjective Principal diagnosis: s/p primary section Interval history: The patient is doing well this morning and had no acute events overnight. She has no complaints this morning. She reports minimal lochia, passing flatus, ambulating, and eating/drinking without nausea or vomiting. Awaiting void. She is her without difficulty. She denies chest pain, shortness of breathing, fevers, or chills overnight. She denies pain or swelling in the legs. Patient reports: Reports appetite normal, Reports voiding normally, Reports pain well controlled, Reports ambulating normally [place]: doing well, nursing well Objective - Vital Signs Latest vital signs: Vital Signs Temp Pulse Resp BP Pulse Ox 10/06/24 04:00 99.1 F 116 H 16 104/64 96 10/06/24 00:45 16 96 10/06/24 00:00 97.9 F 105 H 16 117/67 99 10/05/24 22:15 117 H 16 125/61 10/05/24 22:00 98.6 F 114 H 16 102/59 99 10/05/24 21:45 116 H 16 115/57 98 10/05/24 21:30 107 H 16 122/60 97 10/05/24 21:15 111 H 16 105/53 98 10/05/24 21:00 108 H 16 110/58 98 10/05/24 20:45 94 16 111/59 94 L 10/05/24 20:30 113 H 16 113/56 98 10/05/24 20:15 98.8 F 102 H 16 113/54 97 Intake and Output 10/05/24 10/06/24 10/06/24 22:59 06:59 14:59 Intake Total 1313.8 Output Total 4227 300 Balance -2913.2 -300 Intake: IV 1300 Intake, IV Titration 13.8 Amount Oxytocin 30 Units/500 ml 13.8 Ns 30 unit In Saline 1 500ml.bag @ Per Protocol IV .Q0M [facility] Rx#:[id number] Output: Urine 400 300 Uretheral ([place]oz[place]) 200 Output, Quantitative 3827 Blood Loss Other: # Voids 1 - Exam Extremities: Present: normal Abdomen: Present: normal appearance, soft Incision: Present: normal, dry, intact Uterus: Present: normal, firm - Labs Labs: Abnormal Lab Results - Last 24 Hours (Table) 03/03/25 Range/Units 05:51 WBC 13.5 H (3.8-10.6) k/uL RBC 3.79 L (3.80-5.40) m/uL Hgb 9.5 L (11.4-16.0) gm/dL Hct 31.4 L (34.0-46.0) % MCHC 30.2 L (31.0-37.0) g/dL RDW 21.0 H (11.5-15.5) % Neutrophils # 11.7 H (1.3-7.7) k/uL Assessment and Plan Assessment: 28 year old now POD#1 s/p primary section for arrest of active phase of labor Plan: 1. Postoperative. Patient meeting all postoperative milestones appropriately. 2. Viable male at bedside, doing well. Unsure on circumcision. Dispo: Anticipate discharge home tomorrow.
--- NOTE | 2024-10-06 11:03 | P.PN ---
Progress Note - Text 10/06/24 631am 28-year-old female status post with spinal Duramorph. Patient seen and evaluated for postop pain control she has a VAS of 4 with no complaints of nausea she does have pruritus which should subside
[2024-10-06] MEDS: SENNOSIDES-DOCUSATE SODIUM 1 EACH TAB PO SCH (11:30)
[2024-10-07] MEDS: IBUPROFEN 800 MG TAB PO SCH (05:07)
--- NOTE | 2024-10-07 07:05 | P.PNOBGPC ---
Subjective - Subjective Principal diagnosis: s/p section Interval history: The patient is doing well this morning and had no acute events overnight. She has no complaints this morning. She reports minimal lochia, passing flatus, voiding without difficulty, ambulating, and eating/drinking without nausea or vomiting. She is breast feeding her infant without difficulty. She denies chest pain, shortness of breathing, fevers, or chills overnight. She denies pain or swelling in the legs. Patient reports: Reports appetite normal, Reports voiding normally, Reports pain well controlled, Reports ambulating normally [place]: doing well Objective - Vital Signs Latest vital signs: Vital Signs Temp Pulse Resp BP Pulse Ox 10/07/24 01:00 97.7 F 63 16 112/64 99 10/06/24 16:25 98.2 F 101 H 16 112/72 98 10/06/24 11:39 98.4 F 96 18 104/65 97 10/06/24 07:30 16 Intake and Output 10/06/24 10/07/24 10/07/24 22:59 06:59 14:59 Other: # Voids 1 - Exam Extremities: Present: normal Abdomen: Present: normal appearance, soft Incision: Present: normal, dry, intact Uterus: Present: normal, firm Assessment and Plan Assessment: 28 year old now POD#2 s/p primary section for arrest of active phase of labor Plan: 1. Postoperative. Patient meeting all postoperative milestones appropriately. 2. Viable male infant in the nursery for IV antibiotics. Will likely need a few days more in the hospital. Eventually will need circumcision. Dispo: Anticipate discharge home POD#4
--- NOTE | 2024-10-08 08:49 | P.PNOBGPC ---
Subjective - Subjective Principal diagnosis: s/p section Interval history: The patient is doing well this morning and had no acute events overnight. She has no complaints this morning. She reports minimal lochia, passing flatus, voiding without difficulty, ambulating, and eating/drinking without nausea or vomiting. She is pumping colostrum for her in the nursery. She denies chest pain, shortness of breathing, fevers, or chills overnight. She denies pain or swelling in the legs. Patient reports: Reports appetite normal, Reports voiding normally, Reports pain well controlled, Reports ambulating normally [place]: doing well Objective - Vital Signs Latest vital signs: Vital Signs Temp Pulse Resp BP Pulse Ox 10/07/24 22:11 97.9 F 95 18 123/56 100 10/07/24 16:30 98.2 F 92 16 118/65 100 10/07/24 09:00 97.7 F 98 16 121/75 99 Intake and Output 10/07/24 10/08/24 10/08/24 22:59 06:59 14:59 Other: # Voids 1 2 - Exam Extremities: Present: normal Abdomen: Present: normal appearance, soft Incision: Present: normal, dry, intact Uterus: Present: normal, firm Assessment and Plan Assessment: 28 year old now POD#3 s/p primary section for arrest of active phase of labor Plan: 1. Postoperative. Patient meeting all postoperative milestones appropriately. 2. Viable male infant in the nursery for IV antibiotics. Will likely need a few days more in the hospital. Eventually will need circumcision. Dispo: Anticipate discharge home POD#4
[2024-10-09 01:58] VITALS: RESP 16
--- NOTE | 2024-10-09 08:51 | P.DS ---
Providers Date of admission: 10/05/24 01:52 Expected date of discharge: 10/09/24 Attending physician: Anaid Martinez MD Primary care physician: Stated None Hospital Course: Ms. Medellin is a 28 year old now POD#4 s/p primary for arrest of active labor. Her surgery was uncomplicated. The patient is doing well this morning and had no acute events overnight. She has no complaints this morning. She reports minimal lochia, passing flatus, voiding without difficulty, ambulating, and eating/drinking without nausea or vomiting. Infant doing well at bedside, s/p circumcision. She denies chest pain, shortness of breathing, fevers, or chills overnight. She denies pain or swelling in the legs. Postoperative restrictions are reviewed with the patient including pelvic rest for 6 weeks, no lifting heavier than 15 pounds for 6 weeks. The patient is encouraged to call the office if she experiences any heavy bleeding, foul- smelling discharge, breast complaints, or any if she has any other concerns. She will follow up in the office with in 2 weeks for postoperative exam. All questions are answered. Assessment: 28 year old now POD#4 s/p primary lower transverse section Patient Condition at Discharge: Good Plan - Discharge Summary New Discharge Prescriptions: New Ibuprofen [Motrin] 600 mg PO Q6HR PRN #30 tab PRN Reason: Mild Pain (Scale 1 To 3) oxyCODONE HCL [Roxicodone] 5 mg PO Q6HR PRN 3 Days #12 tab PRN Reason: Breakthrough Pain Acetaminophen Tab [Tylenol] 650 mg PO Q6H PRN #30 tab PRN Reason: Mild Pain (Scale 1 To 3) No Action Omeprazole Magnesium [PriLOSEC OTC] 20 mg PO HS Vit No.179/Iron/Folic [ Tablet] 1 tab PO QID Discharge Medication List Omeprazole Magnesium [PriLOSEC OTC] 20 mg PO HS 05/19/20 [History] Vit No.179/Iron/Folic [ Tablet] 1 tab PO QID 10/05/24 [History] Acetaminophen Tab [Tylenol] 650 mg PO Q6H PRN #30 tab 10/09/24 [Rx] Ibuprofen [Motrin] 600 mg PO Q6HR PRN #30 tab 10/09/24 [Rx] oxyCODONE HCL [Roxicodone] 5 mg PO Q6HR PRN 3 Days #12 tab 10/09/24 [Rx] Follow up Appointment(s)/Referral(s): Anaid Martinez MD [STAFF PHYSICIAN] - 10/16/24 10:45 am (Post Appointment 11-18-2024 at 11:30am) Activity/Diet/Wound Care/Special Instructions: Instructions 1. Do not begin any exercise program for 3 weeks. 2. Do not resume sexual relations for 6 weeks or longer if uncomfortable. 3. You may take tub baths or showers at any time. 4. You may use tampons if desired after 6 weeks. 5. Keep any areas repaired with stitches clean and dry. 6. If you are not nursing, wear a good fitting, supportive bra during the day and limit fluid intake for at least 1 week to prevent breast engorgement. 7. Call the office, , within the next week to make appointment for your 6 week checkup if it has not already been made. 8. Report any of the following occurrences to the doctor promptly: a. Heavy, excessive bleeding b. Chills, fever c. Burning or frequency of urination d. Pain or redness and breasts if nursing e. Increasing pain or swelling of vulva (stitches). In addition to the above instructions, the following additional should be fol lowed: 1. No heavy lifting or straining (exercising) until after 6 week checkup. 2. Keep abdominal incision clean and dry: You may wear a dressing if more comfortable. 3. Make office appointment for 2 weeks after delivery date. Discharge Disposition: HOME SELF-CARE
[2024-10-09 08:53] VITALS: BP 123/79; PULSE 94; TEMP 97.9
== END 2024-10-09 12:00 | disposition home or self-care (01) | DRG 540 ==
LOC: FBPOP 01:32 → 4FBP 01:52
PROVIDERS: ADMIT Obstetrics & Gynecology; ATTEND Obstetrics & Gynecology
PROC: 10D00Z1 Extraction of Products of Conception, Low, Open Approach (ICD-10-PCS; principal; 2024-10-05 19:30)
DX: O48.0 Post-term pregnancy (principal); O42.92 Full-term premature rupture of membranes, unspecified as to length of time between rupture and onset of labor; O62.1 Secondary uterine inertia; Z3A.40 40 weeks gestation of pregnancy; Z37.0 Single live birth
CPT/HCPCS: 59025; 80306; 84112; 85025; 86850; 86900; 86901; 99213